=== PATIENT | female | born 1985 | race African-American/Black ===

== ENCOUNTER 2022-03-17 10:09 | Outpatient (REF) | payer OTHER, SELFPAY ==
--- NOTE | ~2022-03-17 | XR_ITS ---
EXAMINATION: XR CHEST CLINICAL INFORMATION: Bronchitis. Sonographic. COMPARISON: None TECHNIQUE: 2 views of the chest were obtained. FINDINGS: No significant abnormality is noted involving the heart, lungs, mediastinum, bony thorax or soft tissues. XR/XR chest 2V IMPRESSION: Unremarkable chest examination.
== END 2022-03-17 10:10 | disposition home or self-care (01) ==
LOC: HO.XRAY 10:09
PROVIDERS: PCP Family Medicine; Visit Provider Family Medicine
DX: J40 Bronchitis, not specified as acute or chronic (principal); R05.9 Cough, unspecified
CPT/HCPCS: 71046

== ENCOUNTER 2022-04-07 09:31 | Outpatient (REF) | payer OTHER, SELFPAY ==
[2022-04-07 11:14] LABS: Appearance Urine Hazy; Color Urine Yellow; Glucose Urine UA Negative (Negative); Leukocyte Esterase Urine Negative (Negative); Nitrite Urine Negative (Negative); PH 6.5 (5.0-9.0); Specific Gravity - Urine 1.025 (1.005-1.025); UMIC TRIGGER UA YES; Urine Blood Negative (Negative); Urine Ketones Negative (Negative); Urine Protein 100 (2+) mg/dL (Neg-Trace)
[2022-04-07 11:26] LABS: Bacteria Urine None Seen (None Seen); Hyaline Casts Urine 0-2 /LPF (0-2); RBC Urine 0-2 /HPF (0-2); WBC Urine 0-5 /HPF (0-5)
[2022-04-07 11:57] LABS: Alanine Aminotransferase 15 U/L (0-31); Albumin Level 4.4 g/dL (3.5-5.0); Alkaline Phosphatase 68 U/L (39-117); Anion Gap 14 (12-20); Aspartate Amino Transferase 16 U/L (5-31); Bilirubin Total 0.6 mg/dL (0.0-1.0); Blood Urea Nitrogen 13 mg/dL (9-16); Carbon Dioxide 28 mmol/L (22-29); Chloride 102 mmol/L (96-108); Estimated Glomerular Filt Rate 52; Glucose Random 135 mg/dL (60-115); Potassium 4.4 mmol/L (3.3-5.1); Sodium 140 mmol/L (135-145); Total Protein 7.6 g/dL (6.5-8.0)
[2022-04-07 12:09] LABS: Creatinine Urine 234.81 mg/dL
[2022-04-07 12:18] LABS: TSH reflex Free T4 1.03 uIU/mL (0.32-4.0)
[2022-04-07 12:20] LABS: Microalbum/Creatinine Ratio Ur 269.5 ug/mg cr
[2022-04-09 00:24] LABS: LDL Cholesterol Direct 150 mg/dL (<100)
== END 2022-04-07 09:32 | disposition home or self-care (01) ==
LOC: HO.WFDLDS 09:31
PROVIDERS: Visit Provider Family Medicine
DX: Z00.00 Encounter for general adult medical examination without abnormal findings (principal); I10 Essential (primary) hypertension
CPT/HCPCS: 36415; 80053; 81001; 81003; 82043; 83721; 84443

== ENCOUNTER → 2022-04-29 08:06 | Outpatient (BNVA) | payer OTHER, SELFPAY | PROVIDERS: PCP Family Medicine; Visit Provider Nurse Practitioner Family | DX: G47.52 REM sleep behavior disorder (principal); G47.10 Hypersomnia, unspecified; R06.83 Snoring | CPT/HCPCS: 99202 ==

== ENCOUNTER → 2022-06-25 19:30 | Outpatient (REF) | payer OTHER, SELFPAY | LOC: HO.SL 19:30 | PROVIDERS: PCP Family Medicine; Visit Provider Nurse Practitioner Family | DX: G47.33 Obstructive sleep apnea (adult) (pediatric) (principal) | CPT/HCPCS: 95810 ==

== ENCOUNTER 2022-07-19 09:29 | Emergency (ER) | payer OTHER, SELFPAY ==
[2022-07-19 09:34] VITALS: BP 159/99; PULSE 80; RESP 18; TEMP 36.1; O2SAT 95; BMI 47.2
--- NOTE | 2022-07-19 09:53 | ED_ITS ---
HPI - General Adult General Chief complaint: General Medical Stated complaint: l eye infection Time Seen by Provider: 07/19/22 09:42 Source: patient Mode of arrival: ambulatory Limitations: no limitations History of Present Illness HPI narrative: This a 37-year-old female with history of hypertensions who presents to the ER with waking with left eye crusting, drainage, pain to the eye. Patient denies any injury or trauma. She denies any contact lens use or glasses use. Patient reports she went to Urgent Care was referred into the ER for further evaluation due to concern for orbital cellulitis. Patient denies any visual change, fevers. She has had some sneezing and itching eyes for the last few weeks and has been taking Gina which seems to help. However 2 days ago the patient stopped taking it because it was too expensive. No recent cough/colds. Related Data Previous Rx's Medication Instructions Recorded enalapril maleate 5 mg tablet 5 mg PO QAM 30 days #30 tabs 01/28/22 labetalol 200 mg tablet 800 mg PO TID 30 days #360 tabs 01/28/22 nifedipine 60 mg tablet,extended 60 mg PO Q12H 30 days #60 tabs 01/28/22 release 24 hr albuterol sulfate 90 mcg/actuation 2 puff inhalation Q4-6H PRN 03/17/22 aerosol inhaler (ProAir HFA) shortness of breath or wheezing 30 days #8.5 grams amoxicillin 875 mg-potassium 1 tab PO BID #14 tabs 07/19/22 clavulanate 125 mg tablet cetirizine 10 mg tablet (Zyrtec) 10 mg PO DAILY #30 tabs 07/19/22 polymyxin B sulfate 10,000 1 drp ophthalmic (eye) Q3H 7 days 07/19/22 unit-trimethoprim 1 mg/mL eye drops #10 mL Allergies Allergy/AdvReac Type Severity Reaction Status Date / Time No Known Allergies Allergy Verified 07/19/22 09:37 Review of Systems Review of Systems: Yes all other systems are reviewed and are negative Constitutional: Constitutional: Reports no additional constitutional complaints, Denies body ache(s), Denies chills, Denies fever(s), Denies headache(s) and Denies weakness Eyes: Eyes: Reports no additional eye complaints, Denies change in vision, Reports eye discharge, Denies irritation, Denies itchy eyes, Denies loss of vision, Reports eye pain, Denies requires corrective lenses and Denies photophobia ENT: Reports system reviewed and no additional complaints, except as documented, Denies dizziness, Denies headache(s), Denies nasal congestion, Denies nasal discharge and Denies neck pain Cardiovascular: Cardiovascular: Reports no additional cardiovascular complaints, Denies chest pain, Denies leg edema and Denies dyspnea Respiratory: Respiratory: Reports no additional respiratory complaints, Denies cough and Denies dyspnea Gastrointestinal: Gastrointestinal: Reports no additional gastrointestinal complaints, Denies abdominal pain, Denies diarrhea, Denies nausea and Denies vomiting Genitourinary: Genitourinary: Reports no additional female genitourinary complaints and Denies urinary incontinence Musculoskeletal: Musculoskeletal: Reports no additional musculoskeletal complaints, Denies back pain, Denies arthralgias, Denies joint swelling, Denies neck pain, Denies numbness and Denies tingling Integumentary/Breasts: Skin/Breast: Reports system reviewed and no additional complaints, except as docu and Denies rash Neurologic: Reports system reviewed and no additional complaints, except as documented, Denies dizziness, Denies headache(s), Denies loss of vision, Denies numbness, Denies tingling and Denies weakness Allergic/Immunologic: Allergic/Immunologic: Denies itchy eyes PMFSH Past Medical History Attestation statement: The following information was validated with the patient. Source: old records reviewed and nursing notes reviewed Medical History COVID-19 Obesity Surgical History History of LAP-BAND surgery status Family History Family History Mother HTN (hypertension) Father Kidney disease Brother Asthma Social History Social History Alcohol intake: current Alcohol intake frequency: holidays/special occasions only Patient Tobacco Use Status: Never used Tobacco e-Cigarette/Vaping Use: Never Used Second Hand Smoke Exposure: No Advance Directives: No Advance Directives Information Provided: Yes service: No Current occupational status: employed Current occupation: Teacher Current occupational exposures/hazards: No Cognitive needs: No Hearing needs: No Vision needs: No Physical Exam ED Vital Signs: Vital Signs - 24 hr 07/19/22 09:34 Temperature 97.0 F Pulse Rate 80 Respiratory Rate 18 Blood Pressure 159/99 H Pulse Oximetry 95 Oxygen Delivery Method Room Air BMI result Body Mass Index 47.2 Const General: cooperative, healthy appearing, comfortable and no acute distress Orientation/consciousness: patient oriented x3 Limitations: no limitations HENDE Head: Yes normal to inspection Ears: hearing grossly normal bilaterally and TM's normal bilaterally Throat: Yes posterior oropharynx normal, Yes tonsils normal and Yes uvula midline Eyes Other: See charted visual acuity IOP right eyes 19 IOP left eye is 16 General: appearance normal, both eyes and all related structures Visual Sapp: normal visual sapp by confrontation Alignment and Position: alignment normal Eyelids: Yes eyelids normal Conjunctivae: conjunctival abnormal (Left conjunctival injection) and other (NO FB or abrasion on jules lamp) Sclerae: scleral abnormal (Left scleral swelling-mild with no chemosis) Corneas: corneas normal Pupils: Equal, round and reactive pupils present EOM: EOMs intact bilaterally and no movement deficit Direct Ophthalmoscopy: normal light reflex, no photophobia, no papilledema, fundi normal bilaterally and No photophobia Neck Neck: Yes normal visual inspection, Yes full ROM, Yes no lymphadenopathy and Yes no meningeal signs Chest Chest palpation & inspection: normal inspection of the chest Resp Effort & Inspection: normal respiratory effort Auscultation: clear to auscultation bilaterally Cardio Rate: regular rate Rhythm: regular rhythm Peripheral pulses: Peripheral pulses 2+ throughout GI Inspection: Yes normal to inspection Skin General skin exam: no rashes or lesions noted Neuro General: patient oriented x3, moves all extremities and no meningeal signs Cranial nerves: Yes Equal, round and reactive pupils present Cognition (Neuro): normal cognition Gait exam (Neuro): Normal gait present Extrem General: Yes normal to inspection Medications Administered Discontinued Medications Generic Name Dose Route Start Last Admin Trade Name Freq PRN Reason Stop Dose Admin Fluorescein Sodium 1 strip 07/19/22 09:47 07/19/22 10:49 Fluorescein Sodium Strip EYE-LEFT 07/19/22 09:48 1 strip ONCE ONE Administration Tetracaine HCl 1 drop 07/19/22 09:47 04/24/23 10:49 Tetracaine Hcl/Pf 0.5% Oph Jesusita 4 Ml Drops EYE-LEFT 07/19/22 09:48 1 drop ONCE ONE Administration Medical Decision Making Medical Decision Making [facility] Narrative: 37-year-old female with a history of hypertension who presents the ER with complaints of waking with left eye crusting, drainage, swelling and pain. On exam the patient has no corneal foreign body or abrasion. Normal eye pressures. Visual acuity is equal bilaterally. She does have crusting noted around the conjunctiva, drainage and injection of the conjunctiva noted w/ scleral edema. PERRLA. NO pain with EOM or weakness with eye movement. Likely conjunctivitis. Low concern for orbital cellulitis. May have some mild periorbital cellulitis is there is some slight eyelid swelling and redness. Patient be treated with oral antibiotics and topical antibiotic I did review signs and symptoms of orbital cellulitis with her and she will return for any of these symptoms. Differential Diagnosis Differential Diagnoses: The differential diagnosis associated with the prese ntation includes Low concern for orbital cellulitis Conjunctivitis, periorbital cellulitis, conjunctival foreign body or abrasion Tests considered The following testing was considered but not selected: No need for CT of orbits as patient has PERRLA, no weakness with eye movement, no unilateral visual deficit to suggest orbital cellulitis Prescription Management I considered prescription management with: Antibiotic Chronic Conditions Patient?s care impacted by: Hypertension Discharge Plan Discharge Clinical Impression: Cellulitis, periorbital, Conjunctivitis Patient Disposition: Home, Self-Care Instructions: Periorbital Cellulitis in Adults (ED), Conjunctivitis (ED) Additional Instructions: Return for increasing pain in the eye, decreasing vision, inability to move the eye, fever greater than 100.4 Prescriptions: New amoxicillin-pot clavulanate 875-125 mg tablet 1 tab PO BID Qty: 14 0RF polymyxin B sulf-trimethoprim 10,000 unit- 1 mg/mL drops 1 drp ophthalmic (eye) Q3H 7 Days Qty: 10 0RF Rx Instructions: while awake; do not exceed 6 doses in 24 hours cetirizine [Zyrtec] 10 mg tablet 10 mg PO DAILY Qty: 30 0RF No Action enalapril maleate 5 mg tablet 5 mg PO QAM 30 Days Qty: 30 2RF labetalol 200 mg tablet 800 mg PO TID 30 Days Qty: 360 3RF nifedipine 60 mg tablet extended release 24hr 60 mg PO Q12H 30 Days Qty: 60 3RF albuterol sulfate [ProAir HFA] 90 mcg/actuation HFA aerosol inhaler 2 puff inhalation Q4-6H PRN (Reason: shortness of breath or wheezing) 30 Days Qty: 8.5 0RF Referrals: Emerson Arvizu MD [Primary Care Provider] - 10 days Yunier Davis [Physician] - 2 weeks Stand Alone Forms: Work/School Release Interventions: ED Discharge Assessment Last Done: 07/19/22 10:51 Discharge Date/Time: 07/19/22 10:51
[2022-07-19] MEDS: Fluorescein Sodium STRIP 1 STRIP EYE-LEFT (10:49)
[2022-07-19] MEDS: Tetracaine HCl/PF 0.5% Oph Sol 4 ML DROPS 1 DROP EYE-LEFT (10:49)
== END 2022-07-19 10:51 | disposition home or self-care (01) ==
PROVIDERS: Emergency Provider Emergency Medicine; PCP Family Medicine
DX: H10.9 Unspecified conjunctivitis (principal); L03.213 Periorbital cellulitis; H57.12 Ocular pain, left eye
CPT/HCPCS: 99282; 99283

== ENCOUNTER 2022-10-31 22:41 | Emergency (ER) | payer OTHER, SELFPAY ==
[2022-10-31 23:00] VITALS: BP 211/129; PULSE 85; RESP 20; TEMP 36.7; O2SAT 95; BMI 48.1
[2022-11-01 00:16] VITALS: BP 173/102; PULSE 75; RESP 22; O2SAT 89
--- NOTE | 2022-11-01 00:49 | ECG_ITS ---
Test Reason : UNCONTROLLED HYPERTENSION Blood Pressure : / mmHG Vent. Rate : 088 BPM Atrial Rate : 088 BPM P-R Int : 174 ms QRS Dur : 082 ms QT Int : 388 ms P-R-T Axes : 045 014 060 degrees QTc Int : 469 ms Normal sinus rhythm Possible Left atrial enlargement Borderline ECG No previous ECGs available Referred By: Simona Elizondo Electronically Signed By:Ady Moore
--- NOTE | 2022-11-01 01:05 | ED.GENADULT ---
HPI - General Adult General Chief complaint: General Medical Stated complaint: Blood pressure high/burst a vessel/coughing blood Time Seen by Provider: 11/01/22 00:48 Source: patient Mode of arrival: ambulatory History of Present Illness HPI narrative: 37-year-old female who is on multiple hypertensive medications (enalapril, nifedipine, labetalol) and was unable to take any the medications today because she had a nose bleed at approximately 10:00 and had swallowed so much blood that she was nauseous and vomiting. She she has been seen in urgent care and received Afrin and thus far has had no further episodes of epistaxis. Patient also has a history of obstructive sleep apnea Related Data Previous Rx's Medication Instructions Recorded cetirizine 10 mg tablet (Zyrtec) 10 mg PO DAILY #30 tabs 07/19/22 enalapril maleate 5 mg tablet 5 mg PO QAM 30 days #30 tabs 08/16/22 furosemide 20 mg tablet (Lasix) 20 mg PO DAILY 4 days #4 tabs 08/16/22 albuterol sulfate 90 mcg/actuation 2 puff inhalation Q4-6H PRN 08/17/22 aerosol inhaler (ProAir HFA) shortness of breath or wheezing 30 days #8.5 grams labetalol 200 mg tablet 800 mg PO TID 30 days #360 tabs 08/17/22 nifedipine 30 mg tablet,extended 30 mg PO DAILY 30 days #30 tabs 10/21/22 release nifedipine 60 mg tablet,extended 60 mg PO DAILY 30 days #30 tabs 10/21/22 release Allergies Allergy/AdvReac Type Severity Reaction Status Date / Time Seasonal Allergies Allergy Intermediate Congestion Verified 08/16/22 12:50 and Itchy Eyes Review of Systems Review of Systems: Pertinent positives and negatives as stated in HPI [facility] Past Medical History Source: nursing notes reviewed Medical History COVID-19 Obesity Surgical History History of LAP-BAND surgery status Family History Family History Mother HTN (hypertension) Father Kidney disease Brother Asthma Social History Social History Housing: Apartment Alcohol intake: current Alcohol intake frequency: does not drink Patient Tobacco Use Status: Never used Tobacco Smoked in Last 30 Days: No e-Cigarette/Vaping Use: Never Used Second Hand Smoke Exposure: No Use of substances other than those prescribed or required for medical reasons: No Advance Directives: No Advance Directives Information Provided: Yes Patient : No service: No Current occupational status: employed Current occupation: Teacher Current occupational exposures/hazards: No Cognitive needs: No Hearing needs: No Vision needs: Yes Physical Exam ED Vital Signs: Vital Signs - 24 hr 10/31/22 23:00 11/01/22 00:16 11/01/22 01:12 Temperature 98.0 F 98.9 F Pulse Rate 85 75 78 Respiratory Rate 20 22 H 20 Blood Pressure 211/129 H 173/102 H 176/105 H Pulse Oximetry 95 89 L 96 Oxygen Delivery Method Room Air Room Air Nasal Cannula Oxygen Flow Rate 2 11/01/22 02:44 Temperature Pulse Rate 89 Respiratory Rate 22 H Blood Pressure 145/67 H Pulse Oximetry 96 Oxygen Delivery Method Nasal Cannula Oxygen Flow Rate 2 BMI result Body Mass Index 48.1 VITAL SIGNS: Reviewed. GENERAL: Elevated BMI, Well developed, well nourished, in no acute distress. HEAD: Normocephalic/atraumatic EYES: PERRLA, EOMI EARS: Ext canals without abnormality NOSE: Nares patent bilateral OROPHARYNX: no oral lesions noted, posterior pharynx clear NECK: Supple, no adenopathy LUNGS: Normal breath sounds. No adventitious sounds or accessory muscle use. SpO2<89> while sleeping and placed on 2 L via nasal cannula CARDIOVASCULAR: Regular rate and rhythm without noted murmurs, no JVD or lower extremity edema. ABDOMEN: Soft, non-tender, non-distended with bowel sounds. MUSCULOSKELETAL: No tenderness, deformities, or effusions noted on gross inspection. EXTREMITIES: No cyanosis, clubbing or edema. SKIN: Inspection of the skin reveals no rashes NEUROLOGIC: Alert and oriented x 4. Strength and sensation to light touch were grossly intact x 4. Medications Administered Discontinued Medications Generic Name Dose Route Start Last Admin Trade Name Freq PRN Reason Stop Dose Admin Furosemide 20 mg 11/01/22 01:58 11/01/22 02:15 Furosemide 20 Mg/2 Ml Vial IVPUSH 11/01/22 01:59 20 mg ONCE ONE Administration Protocol Labetalol HCl 10 mg 11/01/22 01:11 11/01/22 01:18 Labetalol Hcl 100 Mg/20 Ml Vial IVPUSH 11/01/22 01:12 10 mg ONCE ONE Administration Labetalol HCl 200 mg 11/01/22 02:02 11/01/22 02:15 Labetalol Hcl 200 Mg Tablet PO 11/01/22 02:03 200 mg ONCE ONE Administration Protocol Nifedipine 30 mg 11/01/22 02:02 11/01/22 03:03 Nifedipine Er 30 Mg Tab.Er.24 PO 11/01/22 02:03 30 mg ONCE ONE Administration Protocol Ondansetron HCl 4 mg 11/01/22 01:06 11/01/22 01:18 Ondansetron Hcl 4 Mg/2 Ml Vial IVPUSH 11/01/22 01:07 4 mg ONCE ONE Administration Medical Decision Making Medical Decision Making MDM Narrative: 37-year-old female with history and clinical presentation consistent with epistaxis, DDX: Uncontrolled hypertension, hypertensive urgency with pulmonary edema, LESTER I reviewed all investigations and hematologic indices are negative for acute leukocytosis or left shift, no evidence of anemia or thrombocytopenia there is a predominance of the eosinophilia which may provide additional explanation for patient's respiratory status although she is not hypoxic while awaken suspect that the episode of hypoxemia that was observed is secondary to her known obstructive sleep apnea for which she wears a CPAP at night. Chemistry indices are negative for acute electrolyte derangements, there is no SIA, liver enzymes are within normal limits there is a slight elevation of BNP for which patient received 20 mg of Lasix IV. Patient also received her home dosing of labetalol 200 mg and nifedipine 30 mg in addition to the 5 mg labetalol IV. On re-evaluation patient states she is feeling much better she has had no further episodes of epistaxis and her blood pressure is much better controlled. She was encouraged to take her medication as scheduled in the morning and to also use her CPAP at night. She is otherwise discharged home. Differential Diagnosis Differential Diagnoses: The differential diagnosis associated with the presentation includes Please see the discussion above Admission/Observation Consideration of admission/observation: Escalation of care including admission/observation considered Please see the discussion above Lab Data [facility] Lab Attestation statement: I reviewed the patient's lab results. Please see the discussion above 11/01/22 01:10 11/01/22 01:10 Labs: Lab Results 11/01/22 11/01/22 11/01/22 Range/Units 01:10 01:10 01:10 WBC 10.0 (4.8-10.8) X10*3/uL RBC 4.35 (4.20-5.50) X10*6/uL Hgb 12.6 (12.0-16.0) g/dl Hct 40.4 (37.0-47.0) % MCV 92.9 (80.0-98.0) fL MCH 29.0 (27.0-33.0) pg MCHC 31.2 (31.0-35.0) g/dl RDW 13.5 (11.0-16.0) % Plt Count 378 (160-400) X10*3/uL MPV 11.0 (9.4-12.3) fL Immature Gran % (Auto) 0.4 (0.0-0.4) % Neut % (Auto) 61.0 (45-73) % Lymph % (Auto) 25.9 (20-40) % [place] % (Auto) 5.8 (2-11) % Eos % (Auto) 6.3 H (0-4) % Baso % (Auto) 0.6 (0-2) % Lymph # (Auto) 2.6 (1.2-4.9) X10*3/uL [place] # (Auto) 0.6 (0.1-1.2) X10*3/uL Eos # (Auto) 0.6 H (0.0-0.4) X10*3/uL Baso # (Auto) 0.1 (0.0-0.2) X10*3/uL Abs Immat Gran (auto) 0.04 H (0.00-0.03) X10*3/uL Absolute Neuts (auto) 6.1 (2.0-8.3) x10*3/uL Absolute Nucleated RBC 0.000 (0.0-0.012) X10*3/uL Nucleated RBC % (auto) 0.0 (0.0-0.2) /100WBC Sodium 141 (135-145) mmol/L Potassium 4.9 (3.3-5.1) mmol/L Chloride 104 (96-108) mmol/L Carbon Dioxide 23 (22-29) mmol/L Anion Gap 19 (12-20) BUN 17 H (9-16) mg/dL Creatinine 1.26 (0.5-1.4) mg/dL Estim Creat Clear Calc 80.7 Estimated GFR 48 Random Glucose 116 H (60-115) mg/dL Calcium 8.7 D (8.4-10.2) mg/dL Total Bilirubin 0.3 (0.0-1.0) mg/dL AST 27 (5-31) U/L ALT 24 (0-31) U/L Alkaline Phosphatase 73 (39-117) U/L B-Natriuretic Peptide 111 H (<100) pg/mL Total Protein 7.6 (6.5-8.0) g/dL Albumin 3.8 (3.5-5.0) g/dL Urine Color Urine Appearance Urine pH (5.0-9.0) Ur Specific [place] (1.005-1.025) Urine Protein (Neg-Trace) mg/dL Urine Glucose (UA) (Negative) mg/dL Urine Ketones (Negative) mg/dL Urine Blood (Negative) Urine Nitrite (Negative) Ur Leukocyte Esterase (Negative) Urine RBC (0-2) /HPF Urine WBC (0-5) /HPF Ur Squamous Epith Cells (0-2) /HPF Urine Bacteria (None Seen) Hyaline Casts (0-2) /LPF Urine Test (NEGATIVE) 11/01/22 11/01/22 Range/Units 03:20 03:20 WBC (4.8-10.8) X10*3/uL RBC (4.20-5.50) X10*6/uL Hgb (12.0-16.0) g/dl Hct (37.0-47.0) % MCV (80.0-98.0) fL MCH (27.0-33.0) pg MCHC (31.0-35.0) g/dl RDW (11.0-16.0) % Plt Count (160-400) X10*3/uL MPV (9.4-12.3) fL Immature Gran % (Auto) (0.0-0.4) % Neut % (Auto) (45-73) % Lymph % (Auto) (20-40) % [place] % (Auto) (2-11) % Eos % (Auto) (0-4) % Baso % (Auto) (0-2) % Lymph # (Auto) (1.2-4.9) X10*3/uL [place] # (Auto) (0.1-1.2) X10*3/uL Eos # (Auto) (0.0-0.4) X10*3/uL Baso # (Auto) (0.0-0.2) X10*3/uL Abs Immat Gran (auto) (0.00-0.03) X10*3/uL Absolute Neuts (auto) (2.0-8.3) x10*3/uL Absolute Nucleated RBC (0.0-0.012) X10*3/uL Nucleated RBC % (auto) (0.0-0.2) /100WBC Sodium (135-145) mmol/L Potassium (3.3-5.1) mmol/L Chloride (96-108) mmol/L Carbon Dioxide (22-29) mmol/L Anion Gap (12-20) BUN (9-16) mg/dL Creatinine (0.5-1.4) mg/dL Estim Creat Clear Calc Estimated GFR Random Glucose (60-115) mg/dL Calcium (8.4-10.2) mg/dL Total Bilirubin (0.0-1.0) mg/dL AST (5-31) U/L ALT (0-31) U/L Alkaline Phosphatase (39-117) U/L B-Natriuretic Peptide (<100) pg/mL Total Protein (6.5-8.0) g/dL Albumin (3.5-5.0) g/dL Urine Color Yellow Urine Appearance Cloudy Urine pH 5.5 (5.0-9.0) Ur Specific [place] 1.010 (1.005-1.025) Urine Protein Trace (Neg-Trace) mg/dL Urine Glucose (UA) Negative (Negative) mg/dL Urine Ketones Negative (Negative) mg/dL Urine Blood Trace H (Negative) Urine Nitrite Negative (Negative) Ur Leukocyte Esterase Negative (Negative) Urine RBC 0-2 (0-2) /HPF Urine WBC 0-5 (0-5) /HPF Ur Squamous Epith Cells 11-20 (0-2) /HPF Urine Bacteria 3+ (None Seen) Hyaline Casts 0-2 (0-2) /LPF Urine Test NEGATIVE (NEGATIVE) Independent Interpretation I performed an independent interpretation of an: EKG Interpretation: NSR, HR-88, no STEMI, [place]/QRS/QTc wnl Chronic Conditions Patient?s care impacted by: Hypertension Critical Care Time Critical Care Time Critical Care Time: Yes Total Critical Care Time: 30 Attestation: I personally attest to this time spent taking care of the patient. Discharge Plan Discharge Clinical Impression: Epistaxis, Hypertensive CHF Patient Disposition: Home, Self-Care Instructions: Pulmonary Edema (ED), Nosebleed (ED), Hypertension (ED) Additional Instructions: 1. Resume all home medications as scheduled in the morning. 2. Please follow-up with your primary care provider 1st thing in the morning by calling the office in setting up an appointment. Recommend [id number] saline sprays every 4 hours as needed to more should arise your nasal passages, no blowing your nose. Please consistently use your CPAP machine at night. Return to the ER for any worsening symptoms. Prescriptions: No Action labetalol 200 mg tablet 800 mg PO TID 30 Days Qty: 360 3RF albuterol sulfate [ProAir HFA] 90 mcg/actuation HFA aerosol inhaler 2 puff inhalation Q4-6H PRN (Reason: shortness of breath or wheezing) 30 Days Qty: 8.5 0RF nifedipine 60 mg tablet extended release 60 mg PO DAILY 30 Days Qty: 30 1RF Rx Instructions: Take 60 mg every morning nifedipine 30 mg tablet extended release 30 mg PO DAILY 30 Days Qty: 30 1RF Rx Instructions: Take 30 mg every night cetirizine [Zyrtec] 10 mg tablet 10 mg PO DAILY Qty: 30 0RF furosemide [Lasix] 20 mg tablet 20 mg PO DAILY 4 Days Qty: 4 0RF enalapril maleate 5 mg tablet 5 mg PO QAM 30 Days Qty: 30 1RF Referrals: Emerson Arvizu MD [Primary Care Provider] -
[2022-11-01 01:12] VITALS: BP 176/105; PULSE 78; RESP 20; TEMP 37.2; O2SAT 96
[2022-11-01 01:14] LABS: MANUAL DIFF FLAG NO
[2022-11-01 01:17] LABS: Basophils Absolute Auto 0.1 X10*3/uL (0.0-0.2); Basophils Percent Auto 0.6 % (0-2); Eosinophils Absolute Auto 0.6 X10*3/uL (0.0-0.4); Eosinophils Percent Auto 6.3 % (0-4); Hematocrit 40.4 % (37.0-47.0); Hemoglobin 12.6 g/dl (12.0-16.0); Imm Gran Abs Auto 0.04 X10*3/uL (0.00-0.03); Imm Gran Pct Auto 0.4 % (0.0-0.4); Lymphocytes Absolute Auto 2.6 X10*3/uL (1.2-4.9); Lymphocytes Percent Auto 25.9 % (20-40); Mean Corpuscular HGB Conc 31.2 g/dl (31.0-35.0); Mean Corpuscular Volume 92.9 fL (80.0-98.0); Monocytes Absolute Auto 0.6 X10*3/uL (0.1-1.2); Monocytes Percent Auto 5.8 % (2-11); Neutrophils Absolute Auto 6.1 x10*3/uL (2.0-8.3); Platelet Count 378 X10*3/uL (160-400); Red Blood Count 4.35 X10*6/uL (4.20-5.50); Red Cell Distribution Width 13.5 % (11.0-16.0)
[2022-11-01] MEDS: Labetalol HCL 100 MG/20 ML VIAL 10 MG IVPUSH (01:18)
[2022-11-01] MEDS: ondansetron HCL 4 MG/2 ML VIAL IVPUSH (01:18)
[2022-11-01 01:31] LABS: Alanine Aminotransferase 24 U/L (0-31); Albumin Level 3.8 g/dL (3.5-5.0); Alkaline Phosphatase 73 U/L (39-117); Anion Gap 19 (12-20); Aspartate Amino Transferase 27 U/L (5-31); Bilirubin Total 0.3 mg/dL (0.0-1.0); Blood Urea Nitrogen 17 mg/dL (9-16); Calcium 8.7 mg/dL (8.4-10.2); Carbon Dioxide 23 mmol/L (22-29); Chloride 104 mmol/L (96-108); Creatinine Clr Calc Pharmacy 80.7; Estimated Glomerular Filt Rate 48; Glucose Random 116 mg/dL (60-115); Potassium 4.9 mmol/L (3.3-5.1); Sodium 141 mmol/L (135-145); Total Protein 7.6 g/dL (6.5-8.0)
[2022-11-01 01:35] LABS: B Type Natriuretic Peptide 111 pg/mL (<100)
[2022-11-01] MEDS: Labetalol HCL 200 MG TABLET PO (02:15)
[2022-11-01] MEDS: Furosemide 20 MG/2 ML VIAL IVPUSH (02:15)
[2022-11-01 02:44] VITALS: BP 145/67; PULSE 89; RESP 22; O2SAT 96
[2022-11-01] MEDS: NIFEdipine ER 30 MG TAB.ER.24 PO (03:03)
[2022-11-01 03:29] LABS: Appearance Urine Cloudy; Color Urine Yellow; Glucose Urine UA Negative (Negative); Leukocyte Esterase Urine Negative (Negative); Nitrite Urine Negative (Negative); PH 5.5 (5.0-9.0); UMIC TRIGGER UACC YES; UPreg QC Valid YES; Urine Blood Trace (Negative); Urine Ketones Negative (Negative); Urine Pregnancy NEGATIVE (NEGATIVE); Urine Protein Trace mg/dL (Neg-Trace)
[2022-11-01 03:35] LABS: Bacteria Urine 3+ (None Seen); Hyaline Casts Urine 0-2 /LPF (0-2); RBC Urine 0-2 /HPF (0-2); WBC Urine 0-5 /HPF (0-5)
[2022-11-01 04:00] VITALS: BP 147/88; PULSE 82; RESP 18; O2SAT 94
== END 2022-11-01 04:06 | disposition home or self-care (01) ==
PROVIDERS: Emergency Provider Student in an Organized Health Care Education/Training Program; PCP Family Medicine
DX: R04.0 Epistaxis (principal); I11.0 Hypertensive heart disease with heart failure; I50.9 Heart failure, unspecified; E66.9 Obesity, unspecified; Z68.42 Body mass index [BMI] 45.0-49.9, adult; G47.33 Obstructive sleep apnea (adult) (pediatric); Z99.89 Dependence on other enabling machines and devices; Z79.899 Other long term (current) drug therapy
CPT/HCPCS: 36415; 80053; 81001; 81025; 83880; 85025; 93005; 96374; 96375; 99284; 99285; J1940; J2405

== ENCOUNTER → 2022-11-01 00:49 | Outpatient (BNV) | payer OTHER, SELFPAY | PROVIDERS: Emergency Provider Student in an Organized Health Care Education/Training Program; PCP Family Medicine; Visit Provider Internal Medicine Cardiovascular Disease | DX: I10 Essential (primary) hypertension (principal) | CPT/HCPCS: 93010 ==

== ENCOUNTER 2023-03-10 14:01 | Outpatient (AMB) | payer OTHER, SELFPAY ==
[2023-03-10 14:12] VITALS: BP 142/78; PULSE 86; O2SAT 96; BMI 49.3
--- NOTE | 2023-03-10 14:12 | A.OFFPC_ITS ---
Vital Signs 03/10/23 14:12 Height 5 ft 4 in Weight 287 lb BMI 49.3 BP 142/78 H Blood Pressure Location Lt brachial Position Sitting Pulse 86 Pulse Source Pulse Oximeter Pulse Oximetry (%) 96 Oxygen Delivery Method Room Air Intake Visit Reasons: left ankle sprain? Intake Note: Patient is here with left ankle pain, from a past hairline fracture, after falling off a curb. Patient needs refills of Albuterol and Nifedipine. She is concerned of cough for a few weeks, her daughter had RSV. Allergies Seasonal Allergies Allergy (Intermediate, Verified 03/10/23 14:14) Congestion and Itchy Eyes Tobacco use date assessed: 08/16/22 Dental Screening Dental Screen Date: 03/10/23 Did you have a dental visit in the last 12 months?: Yes Did you have a dental problem in the last 6 months where you did not have access to dental care?: No Was dental information given to patient?: Patient has dentist HPI left ankle sprain? HPI Details 37 y/o female presents with ? L ankle sp rain. Pt reports hx of hairline fracture a couple years ago per pt after falling off a curb. Blood pressure today 142/78. She states she is only taking labetalol 800mg t.i.d. and nifedipine. She is not taking her enalapril. She is concerned of cough for a few weeks, her daughter had RSV. [facility] Medical History COVID-19 Obesity Surgical History History of LAP-BAND surgery status Family History Mother HTN (hypertension) Father Kidney disease Brother Asthma Social History Housing: Apartment Alcohol intake: current Alcohol intake frequency: does not drink Patient Tobacco Use Status: Never used Tobacco e-Cigarette/Vaping Use: Never Used Second Hand Smoke Exposure: No service: No Current occupational status: employed Current occupation: Teacher Current occupational exposures/hazards: No Cognitive needs: No Hearing needs: No Vision needs: Yes Questionnaire Thrive Questionnaire Date Thrive assessed: 04/07/22 HUE-7 AMB Questionnaire HUE-7 Date HUE - 7 assessed: 05/07/22 Source: Developed by Drs. Riky Rayo, Stella Mantilla, Benjy Long and colleagues, with an educational tita from [employer]. Review of Systems Resp Reports cough Physical exam (Primary Care) Vital Signs: Last Vital Signs Pulse 86 03/10/23 14:12 BP 142/78 H 03/10/23 14:12 Pulse Ox 96 03/10/23 14:12 Oxygen Delivery Method Room Air 03/10/23 14:12 BMI result Body Mass Index 49.3 Tobacco/Smoking Status: Tobacco use Status Tobacco use date assessed 08/16/22 03/10/23 14:15 Patient Tobacco Use Status Never used Tobacco 03/10/23 14:15 e-Cigarette/Vaping Use Never Used 03/10/23 14:15 Thrive Assessment: Date of Thrive Assessment Date Thrive assessed 04/07/22 03/10/23 14:15 Assessment and Plan Assessment & Plan (1) Left ankle pain: Code(s): M25.572 - Pain in left ankle and joints of left foot Plan: Possible?arthritis?versus?stress?fracture Check?x-ray Can?use?meloxicam Ice/heat?and?elevation Relative?rest;?she?can?have?this?week?off?from?work?and?then?return?on?Tuesday (2) Hypertension: Code(s): I10 - Essential (primary) hypertension Plan: Blood?pressure?is?always?elevated.??I?am?increasing?her?enalapril. Will?check?creatinine?level?with?next?blood?draw (3) Cough: Code(s): R05.9 - Cough, unspecified Plan: Recent viral illness Lungs CTA Lik[place] Post viral tussive syndrome Should gradually improve Orders: Orders Comprehensive [place]. Panel Fast Today Z00.00 - Encounter for general adult medical examination without abnormal findings Complete Blood Count Auto Diff Today Z00.00 - Encounter for general adult medical examination without abnormal findings XR ankle LT min 3V Today M25.572 - Pain in left ankle and joints of left foot Lipid Panel Today Z00.00 - Encounter for general adult medical examination without abnormal findings Microalbumin, Random (w Creat) Today I10 - Essential (primary) hypertension TSH reflex Free T4 Today Z00.00 - Encounter for general adult medical examination without abnormal findings UA and rflx microscopic Today Z00.00 - Encounter for general adult medical examination without abnormal findings Medications: New meloxicam 15 mg PO DAILY 30 days 30 tabs 2RF M25.572 - Pain in left ankle and joints of left foot Changed From enalapril maleate 5 mg PO QAM 30 days 30 tabs 1RF To enalapril maleate 10 mg PO QAM 90 days 90 tabs 3RF Refilled albuterol sulfate 90 mcg/actuation (ProAir HFA) 2 puffs inhalation Q4-6H 30 days PRN 8.5 grams 0RF shortness of breath or wheezing M25.572 - Pain in left ankle and joints of left foot Coding Level of Care Code Est Pt Level 4 (35313) Diagnoses Left ankle pain M25.572 Hypertension I10 Cough R05.9
== END 2023-03-10 14:35 | disposition home or self-care (01) ==
PROVIDERS: PCP Family Medicine; Visit Provider Family Medicine
DX: M25.572 Pain in left ankle and joints of left foot (principal); I10 Essential (primary) hypertension; R05.9 Cough, unspecified
CPT/HCPCS: 99214

== ENCOUNTER 2023-03-10 15:05 | Outpatient (REF) | payer OTHER, SELFPAY ==
--- NOTE | ~2023-03-10 | XR_ITS ---
EXAMINATION: XR ANKLE, LEFT CLINICAL INFORMATION: Pain in left ankle and joints of left foot, patient states recent twisting ankle swelling. Lateral ankle pain. COMPARISON: None available. TECHNIQUE: AP, lateral, and mortise views of the left ankle. FINDINGS: Soft tissue swelling at the ankle with joint effusion. Multiple ossific/calcific fragments inferior to the medial malleolus. Multiple ossific densities and spurring at the site of insertion of the Achilles tendon at the dorsal aspect of the calcaneus. XR/XR ankle LT min 3V IMPRESSION: 1. Multiple ossific/calcific fragments inferior to the medial malleolus. 2. Multiple ossific densities and spurring at the site of insertion of the Achilles tendon at the dorsal aspect of the calcaneus. 3. Recommend follow up imaging in 10-14 days if fracture is suspected.
== END 2023-03-10 15:06 | disposition home or self-care (01) ==
LOC: HO.HMGCX 15:05
PROVIDERS: PCP Family Medicine; Visit Provider Family Medicine
DX: M25.572 Pain in left ankle and joints of left foot (principal)
CPT/HCPCS: 73610

== ENCOUNTER 2023-05-19 15:49 | Outpatient (REF) | payer OTHER, SELFPAY ==
[2023-05-19 16:00] LABS: MANUAL DIFF FLAG NO
[2023-05-19 17:32] LABS: Basophils Absolute Auto 0.1 X10*3/uL (0.0-0.2); Basophils Percent Auto 0.9 % (0-2); Eosinophils Absolute Auto 0.8 X10*3/uL (0.0-0.4); Hematocrit 49.3 % (37.0-47.0); Hemoglobin 15.3 g/dl (12.0-16.0); Imm Gran Abs Auto 0.05 X10*3/uL (0.00-0.03); Imm Gran Pct Auto 0.6 % (0.0-0.4); Lymphocytes Absolute Auto 2.3 X10*3/uL (1.2-4.9); Lymphocytes Percent Auto 29.4 % (20-40); Mean Corpuscular Hemoglobin 27.4 pg (27.0-33.0); Mean Corpuscular Volume 88.2 fL (80.0-98.0); Mean Platelet Volume 11.6 fL (9.4-12.3); Monocytes Absolute Auto 0.5 X10*3/uL (0.1-1.2); Monocytes Percent Auto 6.5 % (2-11); Neutrophils Absolute Auto 4.2 x10*3/uL (2.0-8.3); Neutrophils Percent Auto 52.6 % (45-73); Platelet Count 344 X10*3/uL (160-400); Red Blood Count 5.59 X10*6/uL (4.20-5.50); Red Cell Distribution Width 14.4 % (11.0-16.0); White Blood Count 7.9 X10*3/uL (4.8-10.8)
[2023-05-19 17:34] LABS: Appearance Urine Cloudy; Color Urine Yellow; Glucose Urine UA Negative (Negative); Leukocyte Esterase Urine Negative (Negative); Nitrite Urine Negative (Negative); PH 5.5 (5.0-9.0); Specific Gravity - Urine 1.015 (1.005-1.025); UMIC TRIGGER UA YES; Urine Blood Negative (Negative); Urine Ketones Negative (Negative); Urine Protein 300 (3+) mg/dL (Neg-Trace)
[2023-05-19 17:40] LABS: Bacteria Urine 3+ (None Seen); Hyaline Casts Urine 0-2 /LPF (0-2); RBC Urine 0-2 /HPF (0-2); Squamous Epithelial Cell Urine >20 /HPF (0-2)
[2023-05-19 17:54] LABS: WBC Urine 0-5 /HPF (0-5)
[2023-05-19 18:08] LABS: Creatinine Urine 114.63 mg/dL
[2023-05-19 18:18] LABS: Microalbum/Creatinine Ratio Ur 1744.7 ug/mg cr (<30); Microalbumin Urine > 2000.0 mg/L
[2023-05-19 18:25] LABS: TSH reflex Free T4 1.02 uIU/mL (0.32-4.0)
[2023-05-20 13:49] LABS: Rubeola IgG (Measles) >300.00 AU/mL
== END 2023-05-19 15:50 | disposition home or self-care (01) ==
LOC: HO.LAB 15:49
PROVIDERS: PCP Family Medicine; Visit Provider Family Medicine
DX: I10 Essential (primary) hypertension (principal); Z01.84 Encounter for antibody response examination; Z71.85 Encounter for immunization safety counseling
CPT/HCPCS: 36415; 81001; 82043; 82570; 84443; 85025; 86735; 86762; 86765